=== PATIENT | female | born 1955 | race Caucasian/White ===

== ENCOUNTER 2016-12-05 13:54 | Emergency (ER) | payer MEDICARE, OTHER ==
[2016-12-05 14:07] VITALS: BP 148/90
[2016-12-05] MEDS ORDERED: Tetan/Diph/Pertus SYR(Tdap)* 0.5 ML SYR(BOOSTRIX) use SYR IM ONE (14:45)
--- NOTE | 2016-12-05 14:56 | UC ---
Hand/Wrist HPI - HPI Summary HPI Summary: Was holding her cat last night when the cat suddenly turned around and bit pt's R hand. Cat has never done anything like this before and is not UTD on vaccines , but pt says she is acting normally again. Pt is a smoker, was smoking at the time, and does think it is possible that the cat may have had a small burn that made her react. Today Pt has redness, swelling, pain, and stiffness in R hand near 2nd MCP joint and on dorsum of hand. No streaking or drainage. - History Of Current Complaint Chief Complaint: UCBiteInjury Stated Complaint: CAT BITE Time Seen by Provider: 12/05/16 14:21 Hx Obtained From: Patient ?: No Onset/Duration: Sudden Onset Severity Initially: Mild Severity Currently: Moderate Character Of Pain: Dull, Aching, Stiffness Aggravating Factor(s): Movement Alleviating: Rest Related History: Dominant Hand Right - Allergies/Home Medications Allergies/Adverse Reactions: Allergies Allergy/AdvReac Type Severity Reaction Status Date / Time No Known Allergies Allergy Verified 12/05/16 14:07 PMH/Surg Hx/FS Hx/Imm Hx - Additional Past Medical History Additional PMH: low back pain - Surgical History Surgical History: Yes Surgery Procedure, Year, and Place: TUBAL LIGATION - Family History Known Family History: Positive: Hypertension - Social History Occupation: Retired Alcohol Use: None Substance Use Type: Prescribed Smoking Status (MU): Current Every Day Smoker Type: Cigarettes Amount Used/How Often: 1 ppd Household Exposure Type: Cigarettes Cessation Counseling: Patient Advised to Stop - Immunization History Most Recent Influenza Vaccination: fall 2014 Most Recent Tetanus Shot: unk Most Recent Pneumonia Vaccination: unk Review of Systems Constitutional: Negative Skin: Other - Redness, swelling, bite wounds on R hand Eyes: Negative ENT: Negative Respiratory: Negative Cardiovascular: Negative Gastrointestinal: Negative Genitourinary: Negative Motor: Negative Neurovascular: Negative Musculoskeletal: Negative Neurological: Negative Psychological: Negative All Other Systems Reviewed And Are Negative: Yes Physical Exam Triage Information Reviewed: Yes Appearance: Well-Appearing, Well-Nourished, Pain Distress - mild Vital Signs: Initial Vital Signs Temp 98.7 F 12/05/16 13:59 Pulse 111 12/05/16 13:59 Resp 20 12/05/16 13:59 BP 148/90 12/05/16 13:59 Pulse Ox 100 12/05/16 13:59 Vital Signs Reviewed: Yes Eye Exam: Normal Eyes: Positive: Conjunctiva Clear ENT Exam: Normal ENT: Positive: Normal ENT inspection, Hearing grossly normal, Pharynx normal, TMs normal Dental Exam: Normal Neck exam: Normal Neck: Positive: Supple, Nontender, No Lymphadenopathy Respiratory Exam: Normal Respiratory: Positive: Chest non-tender, Lungs clear, Normal breath sounds, No respiratory distress, No accessory muscle use Cardiovascular: Positive: No Murmur, Tachycardia Musculoskeletal: Positive: 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 cellulitis R hand. elevated blood pressure Discharge - Discharge Plan Condition: Stable Disposition: HOME Prescriptions: Amoxicillin/Clavulanate TAB* [Augmentin TAB 875*] 875 mg PO BID #14 tab Patient Education Materials: Animal Bite (ED), Cellulitis (ED) Referrals: Marcia Guerra MD [Medical Doctor] - 3 Days Tra Billings MD [Primary Care Provider] - 3 Days Additional Instructions: As we discussed, any significant worsening between and Friday should be seen in the emergency department. Please follow up with a hand specialist to make sure you do not have signs of tendon infection as your skin redness and swelling clears up. The health department should check in with you to make sure your cat continues to act normally.
== END 2016-12-05 15:05 | disposition home or self-care (01) ==
LOC: UCEAST 13:54
DX: S61.451A Open bite of right hand, initial encounter (principal); L03.113 Cellulitis of right upper limb; W55.01XA Bitten by cat, initial encounter; Y93.9 Activity, unspecified; Y92.9 Unspecified place or not applicable; Y99.9 Unspecified external cause status; Z72.0 Tobacco use
CPT/HCPCS: 90471; 90715; 99212; G0463